=== PATIENT | female | born 1960 | race Caucasian/White ===

== ENCOUNTER 2022-02-03 15:46 | Emergency (ER) | payer SELFPAY ==
[~2022-02-03] VITALS: Ht 175.3 cm; Wt 68.2 kg
[2022-02-03 16:24] VITALS: BP 135/75
[2022-02-03] MEDS ORDERED: BACDST PO (16:50)
[2022-02-03] MEDS ORDERED: ACET-1080 PO (16:50)
== END 2022-02-03 16:58 | disposition home or self-care (01) ==
LOC: ER 15:47
DX: L02.11 Cutaneous abscess of neck (principal); J44.9 Chronic obstructive pulmonary disease, unspecified; E78.5 Hyperlipidemia, unspecified; Z98.51 Tubal ligation status
CPT/HCPCS: 10060; 87205

== ENCOUNTER 2022-02-06 06:26 | Emergency (ER) | payer OTHER ==
[~2022-02-06] VITALS: Ht 175.3 cm; Wt 68.1 kg
[~2022-02-06 06:26] MED LIST: ACET-1080 PO; BACDST PO
[2022-02-06 08:22] VITALS: BP 107/49
== END 2022-02-06 09:03 | disposition home or self-care (01) ==
LOC: ER 06:26
DX: L02.11 Cutaneous abscess of neck (principal); F17.210 Nicotine dependence, cigarettes, uncomplicated; J44.9 Chronic obstructive pulmonary disease, unspecified; E78.5 Hyperlipidemia, unspecified; Z98.51 Tubal ligation status

== ENCOUNTER 2022-02-09 06:22 | Emergency (ER) | payer SELFPAY ==
[~2022-02-09] VITALS: Ht 175.3 cm; Wt 73.6 kg
[2022-02-09 07:47] VITALS: BP 127/57
== END 2022-02-09 08:15 | disposition home or self-care (01) ==
LOC: ER 06:22
DX: L02.11 Cutaneous abscess of neck (principal); F17.210 Nicotine dependence, cigarettes, uncomplicated; J44.9 Chronic obstructive pulmonary disease, unspecified; E78.5 Hyperlipidemia, unspecified; Z98.51 Tubal ligation status

== ENCOUNTER 2022-05-17 03:53 | Emergency (ER) | payer OTHER ==
[~2022-05-17] VITALS: Ht 175.3 cm; Wt 72.0 kg
[2022-05-17 03:53] VITALS: BP 149/89
[2022-05-17] MEDS ORDERED: IBUPROFEN 600 MG TAB PO ONE (05:45)
[2022-05-17] MEDS ORDERED: ACETAMINOPHEN 325 MG TAB PO ONE (05:45)
[2022-05-17] MEDS ORDERED: AMOX500T86 PO (12:10)
[2022-05-17] MEDS ORDERED: PRED20TA2 PO (12:10)
== END 2022-05-17 12:11 | disposition home or self-care (01) ==
LOC: EDUNIT# 03:53 → ER 03:53 → EDBD 03:53 → ER 12:11
DX: J01.00 Acute maxillary sinusitis, unspecified (principal); B34.9 Viral infection, unspecified; F41.9 Anxiety disorder, unspecified; J44.9 Chronic obstructive pulmonary disease, unspecified; F32.9 Major depressive disorder, single episode, unspecified; E78.5 Hyperlipidemia, unspecified; F17.210 Nicotine dependence, cigarettes, uncomplicated; Z98.890 Other specified postprocedural states; Z20.822 Contact with and (suspected) exposure to COVID-19
CPT/HCPCS: 36415; 70450; 71045; 87426; 87804